=== PATIENT | female | born 1970 | race Two or more races ===

== ENCOUNTER 2017-03-29 17:51 | Emergency (ER) | payer OTHER ==
[2017-03-29] MEDS: KETOROLAC 60 MG/2 ML INJ. IM (19:27)
== END 2017-03-29 20:08 | disposition home or self-care (01) ==
LOC: ER 17:51
DX: S46.012A Strain of muscle(s) and tendon(s) of the rotator cuff of left shoulder, initial encounter (principal); X50.9XXA Other and unspecified overexertion or strenuous movements or postures, initial encounter; X50.0XXA Overexertion from strenuous movement or load, initial encounter; Y93.89 Activity, other specified; Y99.8 Other external cause status; Y92.89 Other specified places as the place of occurrence of the external cause
CPT/HCPCS: 96372; 99283-25; J1885

== ENCOUNTER 2017-11-15 14:06 | Emergency (ER) | payer OTHER ==
[~2017-11-15] VITALS: Ht 165.1 cm; Wt 77.1 kg
[~2017-11-15 14:06] MED LIST: TRAM1TAB4 PO
[2017-11-15 15:05] LABS: BASO # 0.1 x10^3/uL (0.0-0.2); BASO % 1 % (0-3); EOS # 0.2 x10^3/uL (0.0-0.7); EOS % 4 % (0-3); HEMATOCRIT 35.9 % (36.0-47.0); HEMOGLOBIN 12.3 g/dL (12.0-15.5); LYMPH # 1.9 x10^3/uL (1.0-4.8); LYMPH % 29 % (24-48); MEAN CORPUSCULAR HEMOGLOBIN 30 pg (25-35); MEAN CORPUSCULAR HGB CONC 34 g/dL (31-37); MEAN CORPUSCULAR VOLUME 88 fL (79-100); MONO # 0.5 x10^3/uL (0.0-1.1); MONO % 8 % (0-9); NEUT % 59 % (31-73); PLATELET COUNT 234 x10^3/uL (140-400); RED BLOOD COUNT 4.09 x10^6/uL (3.50-5.40); RED CELL DISTRIBUTION WIDTH 13.6 % (11.5-14.5); WHITE BLOOD COUNT 6.7 x10^3/uL (4.0-11.0)
--- NOTE | 2017-11-15 15:08 | EKG ---
[facility] [address] [place] [address] Test Date: 2017-11-15 Test Time: 14:42:13 Pat Name: DARREN PULIDO Department: Room: Gender: F Ticket Collector Or Usher: : 1970 Requested By: KELLY HERRERA Order Number: [id number] Reading MD: Dayton Crockett Measurements Intervals [place] Rate: 63 P: 65 IN: 148 QRS: 2 QRSD: 74 T: 31 QT: 382 QTc: 393 Interpretive Statements SINUS RHYTHM VENTRICULAR PREMATURE COMPLEX(ES) NON SPECIFIC T ABNORMALITY NON SPECIFIC ST DEPRESSION ABNORMAL ECG No previous ECG available for comparison Electronically Signed On 11-17-2017 13:05:36 CDT by Dayton Crockett
--- NOTE | 2017-11-15 15:16 | RAD ---
Portable chest, 11/15/2017: HISTORY: Chest pain The heart size and pulmonary vascularity are normal. There is mild tortuosity of the thoracic aorta. No pulmonary infiltrate is seen. There is no evidence of pleural fluid. IMPRESSION: No acute cardiopulmonary abnormality is detected. Electronically signed by: Yandel Judd MD (11/15/2017 3:13 PM) [facility]
[2017-11-15] MEDS: ONDANSETRON ODT 4 MG TAB.RAPDIS. PO ONE (15:22)
[2017-11-15] MEDS: HYDROcodone/APAP 5/325MG 1 TAB TABLET PO ONE ×2 (15:24→18:16)
--- NOTE | 2017-11-15 15:45 | PHYS DOC ---
Past Medical History Past Medical History: Arrhythmia, Other Additional Past Medical Histor: arthritis, sciatica Past Surgical History: Appendectomy, Cholecystectomy Alcohol Use: None Drug Use: None Adult General Chief Complaint Chief Complaint: SHORTNESS OF BREATH HPI HPI Patient is a 47 year old female presenting with chief complaint of basically chest pain she said it's left side of the chest sharp and it radiates to the left shoulder and neck area, she said she had it last night she thinks it is just because she is recovering from an ablation she felt some mild shortness of breath associated with it and she has pleuritic associated pain. She says that she is frustrated because the doctors over at when she had her break ablation on the did not give her any medications. Review of Systems Review of Systems Constitutional: Denies fever or chills [] Eyes: Denies change in visual acuity, redness, or eye pain [] HENT: Denies nasal congestion or sore throat [] Integument: Denies rash or skin lesions [] Neurologic: Denies headache, focal weakness or sensory changes [] Endocrine: Denies polyuria or polydipsia [] All other systems were reviewed and found to be within normal limits, except as documented in this note. Current Medications Current Medications Current Medications Medications (Trade) Dose Ordered Sig/Yony Start Time Stop Time Status Last Admin Dose Admin Acetaminophen/ Hydrocodone Bitart (Lortab 5/325) 2 tab 1X ONCE 11/15/17 15:00 11/15/17 15:01 DC 11/15/17 15:24 2 TAB Aspirin (Children'S Aspirin) 324 mg 1X ONCE 11/15/17 17:00 11/15/17 17:01 DC 11/15/17 17:05 324 MG Info (CONTRAST GIVEN -- Rx MONITORING) 1 each PRN DAILY PRN 11/15/17 16:15 11/17/17 16:14 Iohexol (Omnipaque 300 Mg/ml) 75 ml 1X ONCE 11/15/17 16:15 11/15/17 16:16 DC 11/15/17 16:20 75 ML Ondansetron HCl (Zofran Odt) 4 mg 1X ONCE 11/15/17 15:00 11/15/17 15:01 DC 11/15/17 15:22 4 MG Allergies Allergies Allergies Coded Allergies Type Severity Reaction Last Updated Verified No Known Drug Allergies 03/29/17 No Physical Exam Physical Exam Constitutional: Well developed, well nourished, no acute distress, non-toxic appearance. [] HENT: Normocephalic, atraumatic, bilateral external ears normal, oropharynx moist, no oral exudates, nose normal. [] Eyes: PERRLA, EOMI, conjunctiva normal, no discharge. [] Neck: Normal range of motion, no tenderness, supple, no stridor. [] Cardiovascular:Heart rate regular rhythm, no murmur [] Lungs & Thorax: Bilateral breath sounds clear to auscultation [] pos chest wall ttp noted and left trapezius. Abdomen: Bowel sounds normal, soft, no tenderness, no masses, no pulsatile masses. [] Skin: Warm, dry, no erythema, no rash. [] Back: No tenderness, no CVA tenderness. [] ext: there is a small nodule in the right groin no pulsatility Neurologic: Alert and oriented X 3, normal motor function, normal sensory function, no focal deficits noted. [] Psychologic: Affect normal, judgement normal, mood normal. [] radiology results are Current Patient Data Vital Signs Vital Signs Date Time Temp Pulse Resp B/P (MAP) Pulse Ox O2 Delivery O2 Flow Rate FiO2 11/15/17 17:00 60 18 153/72 (99) 97 Room Air 11/15/17 14:10 98.0 98.0 Lab Values Laboratory Tests Test 11/15/17 13:45 11/15/17 14:51 11/15/17 17:18 Prothrombin Time 11.8 SEC (11.7-14.0) Prothrombin Time INR 0.9 (0.8-1.1) D-Dimer (Saloni) 0.74 ug/mlFEU (0.00-0.50) H Maternal Serum HCG Beta Subunit < 1 mIU/mL (0-5) Sodium Level 135 mmol/L (136-145) L Potassium Level 4.0 mmol/L (3.5-5.1) Chloride Level 106 mmol/L (98-107) Carbon Dioxide Level 24 mmol/L (21-32) Anion Gap 5 (6-14) L Blood Urea Nitrogen 19 mg/dL (7-20) Creatinine 0.8 mg/dL (0.6-1.0) Estimated GFR (Cockcroft-Gault) 76.2 BUN/Creatinine Ratio 24 (6-20) H Glucose Level 110 mg/dL (70-99) H Calcium Level 8.6 mg/dL (8.5-10.1) Magnesium Level 1.9 mg/dL (1.8-2.4) Total Bilirubin 0.2 mg/dL (0.2-1.0) Aspartate Amino Transferase (AST) 42 U/L (15-37) H Alanine Aminotransferase (ALT) 101 U/L (14-59) H Alkaline Phosphatase 140 U/L (46-116) H Troponin I Quantitative 0.134 ng/mL (0.000-0.055) 0.135 ng/mL (0.000-0.055) DO-Uyf-S-Type Natriuretic Peptide 330 pg/mL (0-124) H Total Protein 7.2 g/dL (6.4-8.2) Albumin 3.3 g/dL (3.4-5.0) L Albumin/Globulin Ratio 0.8 (1.0-1.7) L White Blood Count 6.7 x10^3/uL (4.0-11.0) Red Blood Count 4.09 x10^6/uL (3.50-5.40) Hemoglobin 12.3 g/dL (12.0-15.5) Hematocrit 35.9 % (36.0-47.0) L Mean Corpuscular Volume 88 fL (79-100) Mean Corpuscular Hemoglobin 30 pg (25-35) Mean Corpuscular Hemoglobin Concent 34 g/dL (31-37) Red Cell Distribution Width 13.6 % (11.5-14.5) Platelet Count 234 x10^3/uL (140-400) Neutrophils (%) (Auto) 59 % (31-73) Lymphocytes (%) (Auto) 29 % (24-48) Monocytes (%) (Auto) 8 % (0-9) Eosinophils (%) (Auto) 4 % (0-3) H Basophils (%) (Auto) 1 % (0-3) Neutrophils # (Auto) 4.0 x10^3uL (1.8-7.7) Lymphocytes # (Auto) 1.9 x10^3/uL (1.0-4.8) Monocytes # (Auto) 0.5 x10^3/uL (0.0-1.1) Eosinophils # (Auto) 0.2 x10^3/uL (0.0-0.7) Basophils # (Auto) 0.1 x10^3/uL (0.0-0.2) Laboratory Tests 11/15/17 14:51 Laboratory Tests 11/15/17 13:45 EKG EKG [] Interpretation Time: nsr rate 63 one pvc no stemi noted. Radiology/Procedures Radiology/Procedures [] Impressions: HISTORY: Chest pain The heart size and pulmonary vascularity are normal. There is mild tortuosity of the thoracic aorta. No pulmonary infiltrate is seen. There is no evidence of pleural fluid. IMPRESSION: No acute cardiopulmonary abnormality is detected. Electronically signed by: Yandel Judd MD (11/15/2017 3:13 PM) [facility] DICTATED and SIGNED BY: YANDEL JUDD MD DATE: 11/15/17 151 I called and spoke with the on-call radiologist at 5:15 PM who confirms with me that there is no pericardial effusion. Course & Med Decision Making Course & Med Decision Making Pertinent Labs and Imaging studies reviewed. (See chart for details) []This is a 47 old female was 4 days status post an ablation at [facility] for what sounds like PVCs she is presenting with reducible musculoskeletal type chest pain. D-dimer was elevated CT negative for pulmonary embolus and. EKG did not show any evidence of pericarditis. Troponin was borderline 0.13 both checks. I did talk with Dr. Beti Leung on-call mail handler sorter at reviewed the troponin results reviewed the symptoms reviewed the fact that there is no pericardial effusion she fell from her perspective in light of that that it would be okay to send this patient home perhaps give some NSAIDs. I reviewed this in detail with the patient the plan of care her current lab results and the working diagnosis and the plan for outpatient treatment with [place] and Motrin and need for follow-up with for the ultrasound scheduled she is agreeable return precautions were discussed There may be a component of pericarditis but the EKG is not strongly suggestive of this and there is no pericardial effusions or think she is safe for outpatient management. Dragon Disclaimer Dragon Disclaimer This electronic medical record was generated, in whole or in part, using a voice recognition dictation system. Departure Departure Impression: Primary Impression: Chest pain Disposition: HOME, SELF-CARE Condition: IMPROVED Referrals: UNKNOWN PCP NAME (PCP) Scripts Hydrocodone/Apap 5-325 (NORCO 5-325 TABLET) 1 Each Tablet 1-2 EACH PO PRN Q6HRS PRN for PAIN, #15 as needed for pain Prov: KELLY HERRERA MD 11/15/17 Ibuprofen (IBUPROFEN) 600 Mg Tablet 600 MG PO PRN Q6HRS PRN for PAIN, #20 TAB take with food or milk Prov: KELLY HERRERA MD 11/15/17 KELLY HERRERA MD Nov 15, 2017 15:45
[2017-11-15 15:47] LABS: PROTHROMBIN TIME PATIENT 11.8 SEC (11.7-14.0)
[2017-11-15 15:50] LABS: CALCIUM 8.6 mg/dL (8.5-10.1); CREATININE 0.8 mg/dL (0.6-1.0); D-DIMER 0.74 ug/mlFEU (0.00-0.50); GFR 76.2
[2017-11-15 15:55] LABS: ALBUMIN 3.3 g/dL (3.4-5.0); ALBUMIN/GLOBULIN RATIO 0.8 (1.0-1.7); MAGNESIUM 1.9 mg/dL (1.8-2.4); TOTAL BILIRUBIN 0.2 mg/dL (0.2-1.0); TOTAL PROTEIN 7.2 g/dL (6.4-8.2)
[2017-11-15] MEDS ORDERED: CONTRAST GIVEN. MC PRN (16:15)
[2017-11-15] MEDS: IOHEXOL 300 MG/ML 100ML VIAL. IV ONE (16:20)
--- NOTE | 2017-11-15 16:33 | RAD ---
Examination: CT angiography chest HISTORY: History of left upper chest pain radiating to the back. COMPARISON: None available TECHNIQUE: Axial CT angiographic images of chest were performed with IV contrast. Coronal and sagittal 3-D MIP reformats are performed Exposure: One or more of the following individualized dose reduction techniques were utilized for this examination: 1. Automated exposure control 2. Adjustment of the mA and/or kV according to patient size 3. Use of iterative reconstruction technique FINDINGS: The central airways are patent. The caliber of the aorta grossly appears unremarkable. There is no evidence of filling defect identified in the main pulmonary arterial trunk and right and left main pulmonary arteries and the visualized lobar, segmental branches of the pulmonary arteries. The lungs are clear. There is mild degree attenuation noted throughout the liver likely hepatic steatosis. Cholecystectomy changes. Mild degenerative changes thoracic spine. IMPRESSION: 1. No evidence of pulmonary embolism. 2. The lungs are clear. 3. Mild hepatic steatosis. Electronically signed by: Pacheco Herrera MD (11/15/2017 4:30 PM) [id number]
[2017-11-15] MEDS: ASPIRIN CHEWABLE 81 MG TABLET. PO ONE (17:05)
[2017-11-15 17:24] VITALS: BP 158/67
[2017-11-15] MEDS ORDERED: HYDR-971 PO (17:52)
[2017-11-15] MEDS ORDERED: IBUP-1007 PO (17:52)
[2017-11-15] MEDS: IBUPROFEN 600 MG TABLET. PO ONE (18:16)
== END 2017-11-15 18:20 | disposition home or self-care (01) ==
LOC: ER 14:06
DX: R07.81 Pleurodynia (principal); R06.02 Shortness of breath; M25.512 Pain in left shoulder; M54.2 Cervicalgia
CPT/HCPCS: 36415; 71045; 71275; 80053; 83735; 83880; 84484; 84702; 85025; 85379; 85610; 93005; 99285; Q0162; Q9967

== ENCOUNTER 2021-01-17 12:15 | Emergency (ER) | payer OTHER ==
[~2021-01-17] VITALS: Ht 160 cm; Wt 83.1 kg
[~2021-01-17 12:15] MED LIST changes: +HYDR-3164 PO; +IBUP-1007 PO
[2021-01-17] MEDS ORDERED: [UNRECOGNIZED DRUG - CODE] TP (13:13)
[2021-01-17] MEDS ORDERED: FAMO-63 PO (13:13)
[2021-01-17] MEDS ORDERED: CETI10TA16 PO (13:13)
[2021-01-17] MEDS ORDERED: DEXAMETHASONE 4 MG TABLET PO ONE (13:15)
[2021-01-17] MEDS ORDERED: diphenhydrAMINE HCL 25 MG CAPSULE PO ONE (13:15)
[2021-01-17] MEDS ORDERED: FAMOTIDINE 20 MG TABLET. PO ONE (13:15)
--- NOTE | 2021-01-17 13:20 | PHYS DOC ---
Past Medical History Past Medical History: Arrhythmia, Other Additional Past Medical Histor: arthritis,sciatica,PVC'S,CHRONIC BACK PAIN Past Surgical History: Appendectomy, Cholecystectomy, Hysterectomy, Tubal ligation, Other Additional Past Surgical Histo: CARDIAC ABLATION X2,TUBAL REVERSAL/TUBAL,SHOULDER Smoking Status: Never Smoker Alcohol Use: None Drug Use: None General Adult EDM: Chief Complaint: SKIN PROBLEM HPI: HPI: Patient is a 50 year old female who presents with diffuse rash. Patient was seen at last week for poison adilene after moving her plants outdoors to indoors. Patient was provided with a prednisone taper as well as instructed to take 25 mg Benadryl at night. Patient reports that in the past when she has taken prednisone, she has diffuse urticarial reaction. Patient takes Singulair every day, which was prescribed 2 months ago. She reports using calamine lotion without significant symptom relief. She has not had any changes in diet, detergents, soaps, perfumes, lotions. She denies shortness of breath, difficulty swallowing, chest pain, palpitations, N/V/D. Patient has no other complaints at this time. Review of Systems: Review of Systems: ROS negative except as mentioned in HPI. Heart Score: C/O Chest Pain: No Allergies: Allergies: Allergies Coded Allergies Type Severity Reaction Last Updated Verified amlodipine Allergy Intermediate "I WAS MISERABLE" 01/17/21 Yes fish oil Allergy Intermediate RASH 01/17/21 Yes metoprolol Allergy Intermediate "I SWELL UP" 01/17/21 Yes verapamil Allergy Intermediate "EXTREME H/A'S" 01/17/21 Yes Uncoded Allergies Type Severity Reaction Last Updated Verified UNKNOWN PAIN MEDICATION Allergy Unknown HALLUCINATIONS 01/17/21 Physical Exam: PE: Constitutional: Well developed, well nourished, no acute distress, non-toxic appearance. HENT: Normocephalic, atraumatic, bilateral external ears normal, oropharynx moist, no oral exudates, nose normal. Eyes: PERRLA, EOMI, conjunctiva normal, no discharge. Cardiovascular: Heart rate regular rhythm, no murmur. Lungs & Thorax: Bilateral breath sounds clear to auscultation. Skin: Patient has blanching, raised maculopapular rash predominantly on the neck and chest, but also patches on bilateral upper extremities. Skin otherwise w arm, dry, no erythema. Neurologic: Alert and oriented x3, normal motor function, normal sensory function, no focal deficits noted. Current Patient Data: Vital Signs: Vital Signs Date Time Temp Pulse Resp B/P (MAP) Pulse Ox O2 Delivery O2 Flow Rate FiO2 01/17/21 12:42 98.2 79 20 129/95 (106) 99 Room Air 98.2 Course & Med Decision Making: Course & Med Decision Making Pertinent Labs and Imaging studies reviewed. (See chart for details) Patient's current rash is not consistent with poison adilene contact dermatitis. Patient reports she has had urticarial eruption due to prednisone in the past. Medication will be switched to dexamethasone as well as taking Pepcid, Benadryl and a daily antihistamine. I advised her to resume the use of calamine lotion in combination with these new therapies. Patient is instructed to follow-up with dermatology should her symptoms not improve in the next few days. Additionally, patient should follow-up with her PCP regarding elevated blood pressure here in the department. Patient understands and is agreeable to discharge plan. Oralia Disclaimer: Oralia Disclaimer: This electronic medical record was generated, in whole or in part, using a voice recognition dictation system. Departure Departure Impression: Primary Impression: Urticaria Additional Impression: Elevated blood pressure reading Disposition: 01 HOME / SELF CARE / HOMELESS Condition: STABLE Referrals: UNKNOWN PCP NAME (PCP) Patient Instructions: Jessica, [id number] Additional Instructions: Contact information for cooker helper was provided to you should your symptoms not resolve in the next few days. Please return to the emergency department if you develop new symptoms or your current symptoms worsen. [facility] [address] [place] [address] Hours: Monday - Monday 8:00 am - 5:00 pm? Scripts Calamine/Zinc Oxide (Gs Calamine Lotion) 177 Ml Lotion 1 KIMBERLY TP PRN TID PRN for Skin Protectant, #120 ML 0 Refills Prov: MARK GROSSMAN 01/17/21 Cetirizine Hcl (CETIRIZINE HCL) 10 Mg Tablet 1 TAB PO DAILY, #30 TAB 0 Refills Prov: MARK GROSSMAN 01/17/21 Famotidine (PEPCID) 20 Mg Tablet 20 MG PO HS, #10 TAB Prov: MARK GROSSMAN 01/17/21 MARK GROSSMAN Jan 17, 2021 13:20
[2021-01-17 13:41] VITALS: BP 140/89
== END 2021-01-17 13:41 | disposition home or self-care (01) ==
LOC: ER 12:15
DX: L50.9 Urticaria, unspecified (principal); R03.0 Elevated blood-pressure reading, without diagnosis of hypertension; G89.29 Other chronic pain; Z88.1 Allergy status to other antibiotic agents; Z91.013 Allergy to seafood; Z88.8 Allergy status to other drugs, medicaments and biological substances
CPT/HCPCS: 99284; Q0163